=== PATIENT | female | born 1975 | race Two or more races ===

== ENCOUNTER 2016-05-20 21:19 | Emergency (ER) | payer BC, OTHER ==
[~2016-05-20] VITALS: Ht 157.5 cm; Wt 65.8 kg
[2016-05-20 21:41] VITALS: BP 153/74
[2016-05-20 22:21] LABS: Basophils # (auto) 0.1 uL; Basophils % (auto) 1.2 % (0.0-2.0); DEFINITIVE VIEW TRANSMISSION; Eosinophils # (auto) 0.1 uL; Eosinophils % (auto) 1.4 % (0.0-7.0); Hematocrit 34.9 % (36.0-46.0); Hemoglobin 10.6 g/dL (12.2-16.2); Lymphocytes # (auto) 2.3 uL; Lymphocytes % (auto) 23.8 % (10.0-50.0); Mean Corpuscular Hemoglobin 22.5 pg (28.0-32.0); Mean Corpuscular Hgb Conc. 30.3 g/dL (32.0-36.0); Mean Corpuscular Volume 74.4 fL (80.0-100.0); Monocytes # (auto) 0.7 uL; Monocytes % (auto) 7.4 % (0.0-12.0); Neutrophils # (auto) 6.4 uL; Neutrophils % (auto) 66.2 % (37.0-80.0); Platelet Count (auto) 383 10^3/uL (140-450); Red Cell Distribution Width 16.6 % (11.6-16.0); White Blood Cell 9.7 10^3/uL (4.4-10.8)
[2016-05-20 22:38] LABS: Albumin 3.7 g/dL (3.4-5.0); BUN/Creatinine Ratio 15.1; Calcium 8.3 mg/dL (8.5-10.1); Potassium 4.1 mmol/L (3.5-5.1)
[2016-05-20 22:41] LABS: Bilirubin, Total 0.2 mg/dL (0.2-1.0); Total Protein 8.1 g/dL (6.4-8.2)
[2016-05-21 00:50] LABS: Urine Bilirubin Negative (Negative); Urine Color Yellow (Yellow); Urine Glucose Normal (Normal); Urine Ketone Negative (Negative); Urine Mucus FEW (None Seen); Urine Nitrite Negative (Negative); Urine RBC 3 /hpf (0 - 4); Urine Squamous Epithelial Cell FEW /hpf (<5); Urine Urobilinogen Normal (Negative)
[2016-05-21 01:00] LABS: Urine Blood 1+ /uL (Negative)
== END 2016-05-20 23:46 | disposition left against medical advice (07) ==
LOC: ER 21:29
DX: R10.9 Unspecified abdominal pain (principal); Z53.21 Procedure and treatment not carried out due to patient leaving prior to being seen by health care provider
CPT/HCPCS: 36415; 80053; 81001; 83690; 85025

== ENCOUNTER 2016-05-21 16:35 | Inpatient (IN) | payer BC ==
[~2016-05-21] VITALS: Ht 157.5 cm; Wt 74.7 kg
[2016-05-21] MEDS ORDERED: SODIUM CHLORIDE 0.9% 1,000 ML IVB ONE (19:59)
[2016-05-21] MEDS ORDERED: KETOROLAC TROMETH 30 MG/ML 1ML VIAL IV ONE (20:00)
[2016-05-21] MEDS ORDERED: ACETAMINOPHEN 500 MG TAB PO ONE (20:15)
[2016-05-21 20:48] LABS: Urine Bilirubin Negative (Negative); Urine Blood Negative /uL (Negative); Urine Color Yellow (Yellow); Urine Glucose Normal (Normal); Urine Ketone TRACE (Negative); Urine Mucus FEW (None Seen); Urine Nitrite Negative (Negative); Urine RBC 5 /hpf (0 - 4); Urine Squamous Epithelial Cell FEW /hpf (<5); Urine pH 6.5 (5.0-8.0)
[2016-05-21 20:51] LABS: Basophils # (auto) 0.1 uL; Basophils % (auto) 0.6 % (0.0-2.0); DEFINITIVE VIEW TRANSMISSION; Eosinophils # (auto) 0.2 uL; Eosinophils % (auto) 1.6 % (0.0-7.0); Hematocrit 33.1 % (36.0-46.0); Lymphocytes # (auto) 2.5 uL; Lymphocytes % (auto) 24.5 % (10.0-50.0); Mean Corpuscular Hemoglobin 22.7 pg (28.0-32.0); Mean Corpuscular Hgb Conc. 30.3 g/dL (32.0-36.0); Mean Corpuscular Volume 75.1 fL (80.0-100.0); Mean Platelet Volume 9.2 fL (7.4-10.4); Monocytes # (auto) 0.6 uL; Monocytes % (auto) 6.3 % (0.0-12.0); Neutrophils # (auto) 6.8 uL; Platelet Count (auto) 350 10^3/uL (140-450); Red Cell Distribution Width 16.7 % (11.6-16.0); White Blood Cell 10.1 10^3/uL (4.4-10.8)
[2016-05-21 21:00] LABS: INR 0.99 (0.9-1.15); Partial Thromboplastin Time 25.3 sec (22.64-33.71); Prothrombin Time 10.2 sec (9.37-12.3)
[2016-05-21 21:13] LABS: BUN/Creatinine Ratio 27.5; Potassium 3.8 mmol/L (3.5-5.1)
[2016-05-21 21:14] LABS: Albumin 3.6 g/dL (3.4-5.0); Calcium 8.3 mg/dL (8.5-10.1); Magnesium 2.7 mg/dL (1.6-2.6)
[2016-05-21 21:17] LABS: Bilirubin, Total 0.2 mg/dL (0.2-1.0); Total Protein 7.5 g/dL (6.4-8.2)
[2016-05-22] MEDS ORDERED: ACETAMINOPHEN 325 MG TAB PO ONE (00:30)
[2016-05-22] MEDS ORDERED: PROMETHAZINE HCL 25 MG/ML 1ML IV ONE (07:00)
[2016-05-22] MEDS ORDERED: NALBUPHINE HCL 10 MG/1ml INJECTION IV ONE (07:00)
[2016-05-22] MEDS ORDERED: HYDROmorphone HCL 2 MG/ML VL IM PRN (10:15)
[2016-05-22 11:24] LABS: INR 1.02 (0.9-1.15); Partial Thromboplastin Time 25.3 sec (22.64-33.71); Prothrombin Time 10.5 sec (9.37-12.3)
[2016-05-22] MEDS: LACTATED RINGER'S 1,000 ML IV SCH ×2 (11:30→19:33)
[2016-05-22 12:47] VITALS: BP 131/74
[2016-05-22] MEDS ORDERED: ONDANSETRON HCL 4 MG/2 ML VIAL IV PRN (13:00)
[2016-05-22] MEDS: HYDROmorphone HCL 2 MG/ML VL IV PRN (16:11)
[2016-05-22 16:52] VITALS: BP 133/64
[2016-05-22 22:00] VITALS: BP 123/73
[2016-05-23] MEDS: LACTATED RINGER'S 1,000 ML IV SCH ×5 (01:56→23:33)
[2016-05-23 05:00] VITALS: BP 123/74
[2016-05-23 05:13] VITALS: BP 118/70
[2016-05-23 06:19] LABS: Basophils # (auto) 0 uL; Basophils % (auto) 0.6 % (0.0-2.0); DEFINITIVE VIEW TRANSMISSION; Eosinophils # (auto) 0.1 uL; Eosinophils % (auto) 1.5 % (0.0-7.0); Hematocrit 29.6 % (36.0-46.0); Hemoglobin 9.1 g/dL (12.2-16.2); Lymphocytes # (auto) 1.8 uL; Lymphocytes % (auto) 22.7 % (10.0-50.0); Mean Corpuscular Hemoglobin 22.9 pg (28.0-32.0); Mean Corpuscular Hgb Conc. 30.7 g/dL (32.0-36.0); Mean Corpuscular Volume 74.5 fL (80.0-100.0); Mean Platelet Volume 9.6 fL (7.4-10.4); Monocytes # (auto) 0.5 uL; Monocytes % (auto) 6.1 % (0.0-12.0); Neutrophils # (auto) 5.5 uL; Neutrophils % (auto) 69.1 % (37.0-80.0); Platelet Count (auto) 280 10^3/uL (140-450); Red Cell Distribution Width 16.6 % (11.6-16.0)
[2016-05-23 06:37] LABS: BUN/Creatinine Ratio 15.4; Calcium 8.1 mg/dL (8.5-10.1); Potassium 4.4 mmol/L (3.5-5.1)
[2016-05-23 06:39] LABS: Bilirubin, Total 0.2 mg/dL (0.2-1.0); Total Protein 6.4 g/dL (6.4-8.2)
[2016-05-23 09:26] VITALS: BP 109/63
[2016-05-23] MEDS ORDERED: METHYLENE BLUE 1% 1 ML VIAL IV ONE (10:09)
[2016-05-23] MEDS ORDERED: HEPARIN 1,000 UNITS/ml 1ML VIAL ONE (10:09)
[2016-05-23] MEDS ORDERED: GELATIN 1 SPONGE SIZE 50 TOP ONE (10:10)
[2016-05-23 11:55] VITALS: BP 139/88
[2016-05-23] MEDS ORDERED: ceFAZolin 1GM/50ML D5W 50 ML IV ONE (12:09)
[2016-05-23] MEDS ORDERED: fentaNYL CITRATE 100 MCG/2 ML VL ONE ×2 (12:17→13:32)
[2016-05-23] MEDS ORDERED: MIDAZOLAM HCL 1MG/1ML-2 ML VIAL ONE (12:17)
[2016-05-23] MEDS ORDERED: ROCURONIUM 10MG/ML 10ML VIAL IV ONE (12:18)
[2016-05-23] MEDS ORDERED: DEXAMETHASONE SOD PHOS 10MG/1ML VIAL INJ ONE (12:19)
[2016-05-23] MEDS ORDERED: ONDANSETRON HCL 4 MG/2 ML VIAL ONE (12:19)
[2016-05-23] MEDS ORDERED: KETOROLAC TROMETH 60MG/2ML VIAL IM ONE (12:19)
[2016-05-23] MEDS ORDERED: PROPOFOL 10 MG/ML 20 ML IV ONE (12:26)
[2016-05-23] MEDS ORDERED: NEOSTIGMINE 1 MG/ML INJ (10mg/10ML VIAL) IV ONE (12:26)
[2016-05-23] MEDS ORDERED: GLYCOPYRROLATE 0.2 MG/ML 1ML VIAL IV ONE (12:26)
[2016-05-23] MEDS ORDERED: ONDANSETRON HCL 4 MG/2 ML VIAL IV ONE (14:30)
[2016-05-23] MEDS ORDERED: HYDROmorphone HCL 2 MG/ML VL IV PRN (14:30)
[2016-05-23] MEDS ORDERED: LABETALOL HCL 5 MG/ML 4ML SYRINGE IV PRN (14:30)
[2016-05-23] MEDS ORDERED: ONDANSETRON HCL 4 MG/2 ML VIAL IV PRN (14:30)
[2016-05-23] MEDS: HYDROmorphone HCL 2 MG/ML VL IV PRN ×5 (14:31→22:17)
[2016-05-23 16:47] VITALS: BP_SYST 112; BP_SYST 120; BP_DIAS 63; BP_DIAS 69
[2016-05-23] MEDS: KETOROLAC TROMETH 30 MG/ML 1ML VIAL IV SCH ×2 (17:47→23:34)
[2016-05-23] MEDS: ceFAZolin 1GM/50ML D5W 50 ML IV SCH (21:45)
[2016-05-23 22:00] VITALS: BP 118/68
[2016-05-24] MEDS: LACTATED RINGER'S 1,000 ML IV SCH ×2 (02:15→03:41)
[2016-05-24 05:00] VITALS: BP 123/63
[2016-05-24] MEDS: KETOROLAC TROMETH 30 MG/ML 1ML VIAL IV SCH (05:51)
[2016-05-24] MEDS: ceFAZolin 1GM/50ML D5W 50 ML IV SCH (05:51)
[2016-05-24 06:04] LABS: Basophils # (auto) 0 uL; Basophils % (auto) 0.1 % (0.0-2.0); DEFINITIVE VIEW TRANSMISSION; Eosinophils # (auto) 0 uL; Hematocrit 29.4 % (36.0-46.0); Hemoglobin 8.9 g/dL (12.2-16.2); Lymphocytes # (auto) 0.8 uL; Lymphocytes % (auto) 5.8 % (10.0-50.0); Mean Corpuscular Hemoglobin 22.7 pg (28.0-32.0); Mean Corpuscular Hgb Conc. 30.3 g/dL (32.0-36.0); Mean Corpuscular Volume 74.9 fL (80.0-100.0); Mean Platelet Volume 9.7 fL (7.4-10.4); Monocytes # (auto) 0.7 uL; Monocytes % (auto) 5.3 % (0.0-12.0); Neutrophils # (auto) 11.8 uL; Neutrophils % (auto) 88.8 % (37.0-80.0); Platelet Count (auto) 315 10^3/uL (140-450); Red Cell Distribution Width 16.1 % (11.6-16.0); White Blood Cell 13.3 10^3/uL (4.4-10.8)
[2016-05-24] MEDS: HYDROmorphone HCL 2 MG/ML VL IV PRN (08:49)
[2016-05-24 09:00] VITALS: BP 123/62
[2016-05-24 11:08] VITALS: BP 123/62
== END 2016-05-24 11:50 | disposition home or self-care (01) | DRG 742 ==
LOC: ER 16:40 → OVERFLOW 16:41 → WEST WING 05-22 12:58
PROVIDERS: ADMIT Specialist; ATTEND Specialist
PROC: 0JNC3ZZ Release Pelvic Region Subcutaneous Tissue and Fascia, Percutaneous Approach (ICD-10-PCS; 2016-05-23)
PROC: 0UB14ZZ Excision of Left Ovary, Percutaneous Endoscopic Approach (ICD-10-PCS; principal; 2016-05-23 12:26)
DX: N80.1 Endometriosis of ovary (principal); N83.512 Torsion of left ovary and ovarian pedicle; N73.6 Female pelvic peritoneal adhesions (postinfective); D50.9 Iron deficiency anemia, unspecified; N83.201 Unspecified ovarian cyst, right side; Z82.49 Family history of ischemic heart disease and other diseases of the circulatory system; Z83.3 Family history of diabetes mellitus; Z98.890 Other specified postprocedural states
CPT/HCPCS: 36415; 71020; 76856; 80053; 81001; 81025; 83735; 84702; 85025; 85610; 85730; 86304; 86850; 86900; 86901; 93005; 94761; 96361; 96374; 96375; J0690; J1100; J1885; J2250; J2405; J2704

== ENCOUNTER → 2016-06-21 | Outpatient (CLI) | payer BC | END | disposition home or self-care (01) | LOC: LAB 10:24 | PROVIDERS: ATTEND Specialist | DX: N92.4 Excessive bleeding in the premenopausal period (principal) | CPT/HCPCS: 36415; 83001; 83002; 84439; 84443; 84481 ==

== ENCOUNTER → 2016-07-04 | Outpatient (CLI) | payer BC | END | disposition home or self-care (01) | LOC: LAB 08:56 | PROVIDERS: ATTEND Specialist | DX: Z20.2 Contact with and (suspected) exposure to infections with a predominantly sexual mode of transmission (principal) | CPT/HCPCS: 36415; 80074; 86703 ==

== ENCOUNTER 2016-10-10 13:14 | Emergency (ER) | payer BC ==
[~2016-10-10] VITALS: Ht 157.5 cm; Wt 68.5 kg
[2016-10-10 13:53] LABS: Basophils # (auto) 0.1 uL; Basophils % (auto) 0.8 % (0.0-2.0); CONDITION Y; DEFINITIVE SEE PRINTOUT; Eosinophils # (auto) 0.1 uL; Eosinophils % (auto) 1.6 % (0.0-7.0); Hematocrit 34.5 % (36.0-46.0); Lymphocytes # (auto) 1.6 uL; Lymphocytes % (auto) 21.5 % (10.0-50.0); Mean Corpuscular Volume 71.7 fL (80.0-100.0); Mean Platelet Volume 9.8 fL (7.4-10.4); Monocytes # (auto) 0.5 uL; Monocytes % (auto) 6.1 % (0.0-12.0); Neutrophils # (auto) 5.4 uL; Platelet Count (auto) 402 10^3/uL (140-450); Red Cell Distribution Width 17.8 % (11.6-16.0); SUSPECT SEE PRINTOUT; White Blood Cell 7.7 10^3/uL (4.4-10.8)
[2016-10-10 14:07] LABS: Albumin 3.7 g/dL (3.4-5.0); BUN/Creatinine Ratio 26.2; Bilirubin, Total 0.3 mg/dL (0.2-1.0); Calcium 8.7 mg/dL (8.5-10.1); Total Protein 7.9 g/dL (6.4-8.2)
[2016-10-10 16:34] LABS: Urine RBC None Seen /hpf (0 - 4)
[2016-10-10] MEDS ORDERED: SODIUM CHLORIDE 0.9% 1,000 ML IVB ONE (16:41)
[2016-10-10] MEDS ORDERED: MORPHINE SULFATE 4 MG/ML SYRG IV ONE (16:45)
[2016-10-10] MEDS ORDERED: ONDANSETRON HCL 4 MG/2 ML VIAL IV ONE (16:45)
[2016-10-10 17:29] LABS: Urine Bilirubin Negative (Negative); Urine Blood Negative /uL (Negative); Urine Color Yellow (Yellow); Urine Glucose Normal (Normal); Urine Ketone Negative (Negative); Urine Nitrite Negative (Negative); Urine Squamous Epithelial Cell FEW /hpf (<5); Urine Urobilinogen Normal (Negative); Urine pH 6.5 (5.0-8.0)
[2016-10-10 19:18] VITALS: BP 133/80
== END 2016-10-10 19:43 | disposition home or self-care (01) ==
LOC: ER 13:14
DX: N80.9 Endometriosis, unspecified (principal); K59.00 Constipation, unspecified
CPT/HCPCS: 36415; 74176; 80053; 81001; 84702; 85025; 94761; 96361; 96374; 96375; 99285; J2270; J2405; J7030

== ENCOUNTER → 2016-12-30 | Outpatient (CLI) | payer BC ==
[2016-12-30 07:51] LABS: Basophils # (auto) 0.1 uL; Basophils % (auto) 1.2 % (0.0-2.0); Eosinophils # (auto) 0.1 uL; Hematocrit 33.5 % (36.0-46.0); Hemoglobin 10.4 g/dL (12.2-16.2); Lymphocytes # (auto) 1.6 uL; Lymphocytes % (auto) 21.8 % (10.0-50.0); Mean Corpuscular Hgb Conc. 31.1 g/dL (32.0-36.0); Mean Corpuscular Volume 73.8 fL (80.0-100.0); Mean Platelet Volume 7.9 fL (6.9-10.8); Monocytes # (auto) 0.5 uL; Monocytes % (auto) 6.4 % (0.0-12.0); Neutrophils # (auto) 4.9 uL; Neutrophils % (auto) 68.6 % (37.0-80.0); Platelet Count (auto) 351 10^3/uL (140-450); Red Cell Distribution Width 17.1 % (11.8-14.3); White Blood Cell 7.1 10^3/uL (4.4-10.8)
[2016-12-30 08:05] LABS: Urine Bilirubin Negative (Negative); Urine Blood TRACE /uL (Negative); Urine Color Yellow (Yellow); Urine Glucose Normal (Normal); Urine Ketone Negative (Negative); Urine Mucus FEW (None Seen); Urine Nitrite Negative (Negative); Urine RBC <1 /hpf (0 - 4); Urine Squamous Epithelial Cell FEW /hpf (<5); Urine Urobilinogen Normal (Negative)
[2016-12-30 08:10] LABS: Albumin 3.7 g/dL (3.4-5.0); BUN/Creatinine Ratio 28.6; Bilirubin, Total 0.2 mg/dL (0.2-1.0); Calcium 8.5 mg/dL (8.5-10.1); Potassium 4.4 mmol/L (3.5-5.1)
== END | disposition home or self-care (01) ==
LOC: LAB 07:26
PROVIDERS: ATTEND Internal Medicine
DX: K59.00 Constipation, unspecified (principal); Z78.0 Asymptomatic menopausal state
CPT/HCPCS: 36415; 80053; 80061; 81001; 83001; 84439; 84443; 85025; 85652

== ENCOUNTER → 2017-01-09 | Outpatient (CLI) | payer BC | END | disposition home or self-care (01) | LOC: LAB 11:32 | PROVIDERS: ATTEND Internal Medicine | DX: K59.00 Constipation, unspecified (principal); Z78.0 Asymptomatic menopausal state | CPT/HCPCS: 82270 ==

== ENCOUNTER → 2017-01-25 | Outpatient (CLI) | payer BC | END | disposition home or self-care (01) | LOC: LAB 10:00 | PROVIDERS: ATTEND Specialist | DX: N92.0 Excessive and frequent menstruation with regular cycle (principal) ==

== ENCOUNTER 2017-02-12 21:24 | Emergency (ER) | payer BC ==
[~2017-02-12] VITALS: Ht 157.5 cm; Wt 65.8 kg
[~2017-02-12 21:24] MED LIST: IBUP800T24 PO
[2017-02-12 22:31] LABS: Basophils # (auto) 0.1 uL; Basophils % (auto) 0.4 % (0.0-2.0); Eosinophils # (auto) 0.1 uL; Hemoglobin 10.9 g/dL (12.2-16.2); Lymphocytes # (auto) 1.4 uL; Neutrophils # (auto) 13.2 uL
[2017-02-12 22:32] LABS: Urine Bacteria NONE SEEN /hpf (None Seen); Urine Blood 3+ /uL (Negative); Urine Mucus FEW (None Seen); Urine Specific Gravity 1.016 (1.001-1.035); Urine WBC 6 /hpf (0 - 5)
[2017-02-12 22:34] LABS: Eosinophils % (auto) 0.4 % (0.0-7.0); Hematocrit 34.9 % (36.0-46.0); Lymphocytes % (auto) 9.1 % (10.0-50.0); Mean Corpuscular Hgb Conc. 31.4 g/dL (32.0-36.0); Mean Corpuscular Volume 76.6 fL (80.0-100.0); Monocytes # (auto) 0.6 uL; Monocytes % (auto) 4.2 % (0.0-12.0); Neutrophils % (auto) 85.9 % (37.0-80.0); Platelet Count (auto) 323 10^3/uL (140-450); Red Blood Cells 4.56 10^6/uL (4.0-5.20); White Blood Cell 15.3 10^3/uL (4.4-10.8)
[2017-02-12 22:42] LABS: Albumin 3.7 g/dL (3.4-5.0); Bilirubin, Total 0.4 mg/dL (0.2-1.0); Calcium 8.5 mg/dL (8.5-10.1); Potassium 3.4 mmol/L (3.5-5.1); Total Protein 7.9 g/dL (6.4-8.2)
[2017-02-12 22:46] LABS: Red Cell Distribution Width 21.4 % (11.8-14.3)
[2017-02-12] MEDS ORDERED: ONDANSETRON ODT 4 MG TAB PO ONE (23:45)
[2017-02-13 02:00] VITALS: BP 115/68
[2017-02-13] MEDS ORDERED: LIDOCAINE VISCOUS 2% 15ML UD ONE (08:16)
[2017-02-13] MEDS ORDERED: SODIUM CHLORIDE LOCK 10 ML ONE (08:16)
[2017-02-13] MEDS ORDERED: fentaNYL CITRATE 100 MCG/2 ML VL ONE (08:17)
[2017-02-13] MEDS ORDERED: MIDAZOLAM HCL 5 MG/ML-1ML VIAL ONE (08:17)
[2017-02-13] MEDS ORDERED: diphenhdrAMINE HCL 50 MG/1 ML VL ONE (08:17)
== END 2017-02-13 02:31 | disposition left against medical advice (07) ==
LOC: ER 21:24 → EDBD 21:24 → ER 02-13 02:31
DX: R10.9 Unspecified abdominal pain (principal); F55.2 Abuse of laxatives; Z53.29 Procedure and treatment not carried out because of patient's decision for other reasons
CPT/HCPCS: 36415; 80053; 81001; 85025; 99284; J1200; J2250; J3010; Q0162

== ENCOUNTER 2017-02-13 09:10 | Day surgery (SDC) | payer BC ==
[2017-02-10 15:40] LABS: INR 0.93 (0.9-1.15); Partial Thromboplastin Time 25.3 sec (22.64-33.71); Prothrombin Time 10.1 sec (9.37-12.3)
[~2017-02-13] VITALS: Ht 157.5 cm; Wt 70.3 kg
[2017-02-13 12:00] VITALS: BP 131/74
== END 2017-02-13 12:07 | disposition home or self-care (01) ==
LOC: GI 09:10
PROVIDERS: ATTEND Internal Medicine Gastroenterology
DX: K64.8 Other hemorrhoids (principal); K63.89 Other specified diseases of intestine; K21.9 Gastro-esophageal reflux disease without esophagitis; K31.7 Polyp of stomach and duodenum; K44.9 Diaphragmatic hernia without obstruction or gangrene; N80.9 Endometriosis, unspecified; F10.99 Alcohol use, unspecified with unspecified alcohol-induced disorder; D69.6 Thrombocytopenia, unspecified
CPT/HCPCS: 36415; 43239; 45378; 84702; 85610; 85730; 99152

== ENCOUNTER 2017-03-31 05:59 | Inpatient (IN) | payer BC ==
[2017-03-28 14:09] LABS: Urine Bilirubin Negative (Negative); Urine Blood Negative /uL (Negative); Urine Color Yellow (Yellow); Urine Glucose Normal (Normal); Urine Ketone Negative (Negative); Urine Nitrite Negative (Negative); Urine Urobilinogen Normal (Negative)
[2017-03-28 14:12] LABS: Basophils # (auto) 0.1 uL; Basophils % (auto) 0.9 % (0.0-2.0); Eosinophils # (auto) 0.1 uL; Hemoglobin 11.4 g/dL (12.2-16.2); Lymphocytes # (auto) 1.8 uL; Monocytes # (auto) 0.4 uL; Monocytes % (auto) 5.8 % (0.0-12.0)
[2017-03-28 14:15] LABS: Eosinophils % (auto) 1.5 % (0.0-7.0); Hematocrit 36.8 % (36.0-46.0); Lymphocytes % (auto) 24.6 % (10.0-50.0); Mean Corpuscular Hemoglobin 24.3 pg (28.0-32.0); Mean Corpuscular Hgb Conc. 31.1 g/dL (32.0-36.0); Mean Corpuscular Volume 78.1 fL (80.0-100.0); Mean Platelet Volume 8.8 fL (6.9-10.8); Neutrophils % (auto) 67.2 % (37.0-80.0); Platelet Count (auto) 298 10^3/uL (140-450); White Blood Cell 7.4 10^3/uL (4.4-10.8)
[2017-03-28 14:32] LABS: INR 0.93 (0.9-1.15); Partial Thromboplastin Time 25.2 sec (22.64-33.71); Prothrombin Time 10.1 sec (9.37-12.3)
[2017-03-28 14:40] LABS: Albumin 3.7 g/dL (3.4-5.0); BUN/Creatinine Ratio 28.6; Bilirubin, Total 0.2 mg/dL (0.2-1.0); Calcium 8.5 mg/dL (8.5-10.1); Potassium 4.1 mmol/L (3.5-5.1)
[2017-03-28 17:34] LABS: Platelet Estimate Adequate
[2017-03-28 17:35] LABS: Hypochromia Moderate; Microcytosis Slight; Ovalocytes FEW
[~2017-03-31] VITALS: Ht 157.5 cm; Wt 72.8 kg
[2017-03-31] MEDS ORDERED: ceFAZolin 1GM/50ML 50 ML IV ONE ×2 (06:35→06:41)
[2017-03-31] MEDS ORDERED: SODIUM CHLORIDE LOCK 10 ML ONE (07:09)
[2017-03-31] MEDS ORDERED: ROCURONIUM 10MG/ML 10ML VIAL IV ONE (07:09)
[2017-03-31] MEDS ORDERED: PROPOFOL 10 MG/ML 20 ML IV ONE (07:09)
[2017-03-31] MEDS ORDERED: MIDAZOLAM HCL 1MG/1ML-2 ML VIAL ONE (07:09)
[2017-03-31] MEDS ORDERED: fentaNYL CITRATE 100 MCG/2 ML VL ONE ×2 (07:09→08:57)
[2017-03-31] MEDS ORDERED: ONDANSETRON HCL 4 MG/2 ML VIAL ONE (07:09)
[2017-03-31] MEDS ORDERED: MEPERIDINE HCL (50 MG/ML) 1 ML VIAL ONE (07:10)
[2017-03-31] MEDS ORDERED: METOCLOPRAMIDE HCL 5MG/ml INJ 2ml VIAL IV ONE (08:00)
[2017-03-31] MEDS ORDERED: KETOROLAC TROMETH 30 MG/ML 1ML VIAL IV ONE (08:00)
[2017-03-31] MEDS ORDERED: NEOSTIGMINE 1 MG/ML INJ (10mg/10ML VIAL) ONE (08:38)
[2017-03-31] MEDS ORDERED: GLYCOPYRROLATE 0.2 MG/ML 1ML VIAL ONE (08:38)
[2017-03-31] MEDS ORDERED: KETOROLAC TROMETH 60MG/2ML VIAL IM ONE (08:38)
[2017-03-31] MEDS: HYDROmorphone HCL 2 MG/ML VL IV PRN ×5 (09:30→21:25)
[2017-03-31] MEDS ORDERED: ACETAMINOPHEN IV 100 ML IV ONE (10:16)
[2017-03-31] MEDS ORDERED: ACETAMINOPHEN IV 1000 MG/100ML (10MG/ML) IV ONE (10:30)
[2017-03-31] MEDS ORDERED: ACETAMINOPHEN 500 MG TAB PO PRN (10:30)
[2017-03-31 11:15] VITALS: BP 133/77
[2017-03-31] MEDS: LACTATED RINGER'S 1,000 ML IV SCH ×2 (11:47→18:51)
[2017-03-31] MEDS: KETOROLAC TROMETH 30 MG/ML 1ML VIAL IV SCH ×2 (11:47→18:51)
[2017-03-31] MEDS: ONDANSETRON HCL 4 MG/2 ML VIAL IV PRN (12:05)
[2017-03-31 13:00] VITALS: BP 133/77
[2017-03-31] MEDS: ceFAZolin 1GM/50ML 50 ML IV SCH ×2 (14:32→21:50)
[2017-03-31 16:35] VITALS: BP 128/79
[2017-03-31 22:00] VITALS: BP 119/75
[2017-04-01] MEDS: KETOROLAC TROMETH 30 MG/ML 1ML VIAL IV SCH ×3 (00:16→12:28)
[2017-04-01] MEDS: LACTATED RINGER'S 1,000 ML IV SCH ×3 (02:21→12:55)
[2017-04-01] MEDS: HYDROmorphone HCL 2 MG/ML VL IV PRN ×2 (03:34→08:42)
[2017-04-01 05:00] VITALS: BP 109/59
[2017-04-01 05:20] LABS: Basophils # (auto) 0 uL; Basophils % (auto) 0.1 % (0.0-2.0); Eosinophils # (auto) 0 uL; Eosinophils % (auto) 0.1 % (0.0-7.0); Mean Platelet Volume 8.4 fL (6.9-10.8)
[2017-04-01 05:24] LABS: Hematocrit 27.9 % (36.0-46.0); Hemoglobin 9.1 g/dL (12.2-16.2); Lymphocytes % (auto) 9.2 % (10.0-50.0); Mean Corpuscular Hemoglobin 24.9 pg (28.0-32.0); Mean Corpuscular Hgb Conc. 32.7 g/dL (32.0-36.0); Mean Corpuscular Volume 76.2 fL (80.0-100.0); Monocytes # (auto) 0.8 uL; Monocytes % (auto) 7.5 % (0.0-12.0); Neutrophils # (auto) 8.5 uL; Neutrophils % (auto) 83.1 % (37.0-80.0); Platelet Count (auto) 228 10^3/uL (140-450); Red Cell Distribution Width 18.4 % (11.8-14.3); White Blood Cell 10.3 10^3/uL (4.4-10.8)
[2017-04-01] MEDS: ceFAZolin 1GM/50ML 50 ML IV SCH (05:32)
[2017-04-01 05:40] LABS: Albumin 2.7 g/dL (3.4-5.0); BUN/Creatinine Ratio 27.3; Calcium 7.8 mg/dL (8.5-10.1); Potassium 3.9 mmol/L (3.5-5.1)
[2017-04-01 05:43] LABS: Bilirubin, Total 0.4 mg/dL (0.2-1.0); Total Protein 6.7 g/dL (6.4-8.2)
[2017-04-01 09:26] VITALS: BP 113/64
[2017-04-01] MEDS ORDERED: IOHEXOL 300 MG/ML 100ML BOTTLE IJ ONE (09:46)
[2017-04-01] MEDS ORDERED: HYDROcodone-ACET 5/325MG TAB PO PRN (10:45)
[2017-04-01] MEDS: ONDANSETRON HCL 4 MG/2 ML VIAL IV PRN ×2 (12:14→15:35)
[2017-04-01] MEDS: SIMETHICONE 80 MG CHEWABLE TABLET PO SCH ×3 (12:28→21:25)
[2017-04-01 14:12] VITALS: BP 126/77
[2017-04-01] MEDS ORDERED: PANTOPRAZOLE 40 MG TAB PO ONE ×3 (14:30→15:24)
[2017-04-01] MEDS ORDERED: IBUPROFEN 800 MG TAB PO PRN (14:30)
[2017-04-01] MEDS: HYDROcodone-ACET 5/325MG TAB PO PRN ×2 (16:32→21:26)
[2017-04-01 17:39] VITALS: BP 136/71
[2017-04-01 22:00] VITALS: BP 107/70
[2017-04-02] MEDS: LACTATED RINGER'S 1,000 ML IV SCH ×2 (02:23→10:21)
[2017-04-02] MEDS: HYDROcodone-ACET 5/325MG TAB PO PRN ×5 (02:35→22:24)
[2017-04-02 05:13] VITALS: BP 125/68
[2017-04-02] MEDS: SIMETHICONE 80 MG CHEWABLE TABLET PO SCH ×4 (06:12→22:23)
[2017-04-02 09:03] VITALS: BP 129/77
[2017-04-02] MEDS: PANTOPRAZOLE 40 MG TAB PO SCH (10:31)
[2017-04-02] MEDS ORDERED: BISACODYL 10 MG RECT SUPP PR ONE (13:30)
[2017-04-02 15:50] VITALS: BP 121/66
[2017-04-02 17:56] VITALS: BP 133/74
[2017-04-02 22:00] VITALS: BP 137/74
[2017-04-03 05:00] VITALS: BP 133/80
[2017-04-03] MEDS: HYDROcodone-ACET 5/325MG TAB PO PRN ×2 (05:08→10:29)
[2017-04-03] MEDS: SIMETHICONE 80 MG CHEWABLE TABLET PO SCH (05:30)
[2017-04-03 07:57] VITALS: BP 127/71
[2017-04-03] MEDS: PANTOPRAZOLE 40 MG TAB PO SCH (08:57)
[2017-04-03 09:52] VITALS: BP 127/71
== END 2017-04-03 10:45 | disposition home or self-care (01) | DRG 743 ==
LOC: SUR 05:59 → TELE-WESTW 06:00 → WEST WING 12:11
PROVIDERS: ADMIT Specialist; ATTEND Specialist
PROC: 0UT20ZZ Resection of Bilateral Ovaries, Open Approach (ICD-10-PCS; 2017-03-31)
PROC: 0UT70ZZ Resection of Bilateral Fallopian Tubes, Open Approach (ICD-10-PCS; 2017-03-31)
PROC: 0DNW0ZZ Release Peritoneum, Open Approach (ICD-10-PCS; 2017-03-31)
PROC: 0DNU0ZZ Release Omentum, Open Approach (ICD-10-PCS; 2017-03-31)
PROC: 0UT90ZZ Resection of Uterus, Open Approach (ICD-10-PCS; principal; 2017-03-31 07:27)
DX: N80.1 Endometriosis of ovary (principal); G89.29 Other chronic pain; N94.6 Dysmenorrhea, unspecified; N92.0 Excessive and frequent menstruation with regular cycle; N73.6 Female pelvic peritoneal adhesions (postinfective)
CPT/HCPCS: 36415; 74177; 80053; 81003; 84702; 85025; 85610; 85730; 86850; 86900; 86901; J0131; J0690; J1885; J2250; J2405; J2704

== ENCOUNTER → 2017-04-24 | Outpatient (CLI) | payer BC | END | disposition home or self-care (01) | LOC: LAB 15:07 | PROVIDERS: ATTEND Specialist | DX: N39.0 Urinary tract infection, site not specified (principal) | CPT/HCPCS: 87086 ==

== ENCOUNTER → 2017-05-02 | Outpatient (CLI) | payer BC | END | disposition home or self-care (01) | LOC: LAB 15:22 | PROVIDERS: ATTEND Specialist | DX: N39.0 Urinary tract infection, site not specified (principal) | CPT/HCPCS: 87086 ==

== ENCOUNTER → 2017-05-23 | Outpatient (CLI) | payer BC ==
[2017-05-23 12:02] LABS: Basophils # (auto) 0.1 uL; Eosinophils # (auto) 0.1 uL; Hemoglobin 10.9 g/dL (12.2-16.2); Lymphocytes # (auto) 1.6 uL; White Blood Cell 6.8 10^3/uL (4.4-10.8)
[2017-05-23 12:05] LABS: Basophils % (auto) 1.2 % (0.0-2.0); Eosinophils % (auto) 1.3 % (0.0-7.0); Lymphocytes % (auto) 23.9 % (10.0-50.0); Mean Corpuscular Hemoglobin 23.6 pg (28.0-32.0); Mean Corpuscular Hgb Conc. 31.2 g/dL (32.0-36.0); Mean Corpuscular Volume 75.7 fL (80.0-100.0); Monocytes # (auto) 0.4 uL; Monocytes % (auto) 6.3 % (0.0-12.0); Neutrophils # (auto) 4.5 uL; Neutrophils % (auto) 67.3 % (37.0-80.0); Nucleated Red Blood Cells % 0.4 %; Platelet Count (auto) 374 10^3/uL (140-450); Red Blood Cells 4.63 10^6/uL (4.0-5.20); Red Cell Distribution Width 16.4 % (11.8-14.3)
== END | disposition home or self-care (01) ==
LOC: LAB 11:35
PROVIDERS: ATTEND Internal Medicine
DX: D64.9 Anemia, unspecified (principal)
CPT/HCPCS: 36415; 82607; 83036; 83540; 85025

== ENCOUNTER → 2017-09-15 | Outpatient (CLI) | payer BC ==
[2017-09-15 11:10] LABS: Basophils # (auto) 0.1 uL; Eosinophils # (auto) 0.1 uL; Hemoglobin 11.3 g/dL (12.2-16.2); Monocytes # (auto) 0.3 uL
[2017-09-15 11:12] LABS: Basophils % (auto) 1.2 % (0.0-2.0); Eosinophils % (auto) 1.4 % (0.0-7.0); Hematocrit 36.8 % (36.0-46.0); Lymphocytes # (auto) 1.5 uL; Lymphocytes % (auto) 24.4 % (10.0-50.0); Mean Corpuscular Hemoglobin 22.5 pg (28.0-32.0); Mean Corpuscular Hgb Conc. 30.8 g/dL (32.0-36.0); Mean Corpuscular Volume 73.2 fL (80.0-100.0); Monocytes % (auto) 5.4 % (0.0-12.0); Neutrophils % (auto) 67.6 % (37.0-80.0); Platelet Count (auto) 332 10^3/uL (140-450); Red Blood Cells 5.03 10^6/uL (4.0-5.20); Red Cell Distribution Width 18.2 % (11.8-14.3)
[2017-09-15 11:38] LABS: BUN/Creatinine Ratio 25.7; Bilirubin, Total 0.3 mg/dL (0.2-1.0); Calcium 9.2 mg/dL (8.5-10.1); Magnesium 2.5 mg/dL (1.6-2.6); Potassium 4.4 mmol/L (3.5-5.1); Total Protein 8.5 g/dL (6.4-8.2)
== END | disposition home or self-care (01) ==
LOC: LAB 10:39
PROVIDERS: ATTEND Internal Medicine
DX: K21.9 Gastro-esophageal reflux disease without esophagitis (principal); R00.2 Palpitations
CPT/HCPCS: 36415; 80053; 82150; 83690; 83735; 85025; 85379; 86677

== ENCOUNTER → 2017-11-16 | Outpatient (CLI) | payer BC | END | disposition home or self-care (01) | LOC: LAB 15:32 | PROVIDERS: ATTEND Internal Medicine Gastroenterology | DX: D64.9 Anemia, unspecified (principal); K21.9 Gastro-esophageal reflux disease without esophagitis | CPT/HCPCS: 82784; 83516; 86255 ==

== ENCOUNTER 2017-12-28 14:24 | Outpatient (CLI) | payer BC ==
[~2017-12-28] VITALS: Ht 157.5 cm; Wt 74.8 kg
[~2017-12-28 14:24] MED LIST changes: -IBUP800T24 PO; +PANT40TA2 PO
[2017-12-28 14:37] LABS: Basophils # (auto) 0.1 uL; Eosinophils # (auto) 0 uL; Lymphocytes # (auto) 1.2 uL; Lymphocytes % (auto) 14.8 % (10.0-50.0); Mean Corpuscular Hemoglobin 24.1 pg (28.0-32.0); Monocytes # (auto) 0.4 uL; Red Blood Cells 4.96 10^6/uL (4.0-5.20)
[2017-12-28 14:38] LABS: Basophils % (auto) 0.7 % (0.0-2.0); Eosinophils % (auto) 0.6 % (0.0-7.0); Hematocrit 37.6 % (36.0-46.0); Hemoglobin 11.9 g/dL (12.2-16.2); Mean Corpuscular Hgb Conc. 31.7 g/dL (32.0-36.0); Mean Corpuscular Volume 75.9 fL (80.0-100.0); Monocytes % (auto) 5.6 % (0.0-12.0); Neutrophils # (auto) 6.1 uL; Neutrophils % (auto) 78.3 % (37.0-80.0); Platelet Count (auto) 316 10^3/uL (140-450); Red Cell Distribution Width 17.1 % (11.8-14.3); White Blood Cell 7.8 10^3/uL (4.4-10.8)
[2017-12-28 14:52] LABS: INR 0.95 (0.9-1.15); Partial Thromboplastin Time 25.7 sec (23.78-33.04); Prothrombin Time 10.2 sec (9.27-12.13)
== END 2017-12-28 14:34 | disposition home or self-care (01) ==
LOC: LAB 14:24 → EDSTATUS 01-29 11:53
PROVIDERS: ATTEND Internal Medicine Gastroenterology
DX: K21.9 Gastro-esophageal reflux disease without esophagitis (principal); D64.9 Anemia, unspecified; E66.9 Obesity, unspecified; Z68.30 Body mass index [BMI] 30.0-30.9, adult; Z98.890 Other specified postprocedural states; Z90.710 Acquired absence of both cervix and uterus; Z90.721 Acquired absence of ovaries, unilateral; Z82.49 Family history of ischemic heart disease and other diseases of the circulatory system; Z83.3 Family history of diabetes mellitus; Z79.01 Long term (current) use of anticoagulants
CPT/HCPCS: 36415; 85025; 85610; 85730

== ENCOUNTER → 2018-03-29 | Outpatient (CLI) | payer BC ==
[2018-03-29 14:27] LABS: Free T4 (Free Thyroxine) 1.17 ng/dL (0.89-1.76)
[2018-03-29 14:28] LABS: Free T3 3.46 pg/mL (2.3-4.2)
== END | disposition home or self-care (01) ==
LOC: LAB 12:27
PROVIDERS: ATTEND Specialist
DX: N91.5 Oligomenorrhea, unspecified (principal); E03.9 Hypothyroidism, unspecified
CPT/HCPCS: 36415; 84439; 84443; 84481

== ENCOUNTER → 2020-08-20 | Outpatient (CLI) | payer BC, MEDICAID ==
[2020-08-20 16:59] LABS: Basophils # (auto) 0.1 10 ^3/uL (0-0.2); Eosinophils # (auto) 0.1 10 ^3/uL (0-0.8); Eosinophils % (auto) 1.2 % (0.0-7.0); Hematocrit 40.7 % (36.0-46.0); Hemoglobin 13.9 g/dL (12.2-16.2); Lymphocytes # (auto) 1.7 10 ^3/uL (0.4-5.4); Lymphocytes % (auto) 20.7 % (10.0-50.0); Mean Corpuscular Hgb Conc. 34.1 g/dL (32.0-36.0); Mean Corpuscular Volume 87.8 fL (80.0-100.0); Monocytes # (auto) 0.5 10 ^3/uL (0-1.3); Monocytes % (auto) 6.1 % (0.0-12.0); Neutrophils # (auto) 5.8 10 ^3/uL (1.6-8.6); Nucleated Red Blood Cells % 0.1 %; Platelet Count (auto) 287 10^3/uL (140-450); Red Blood Cells 4.63 10^6/uL (4.0-5.20); Red Cell Distribution Width 13.6 % (11.8-14.3); White Blood Cell 8.2 10^3/uL (4.4-10.8)
[2020-08-20 17:37] LABS: Albumin 3.9 g/dL (3.4-5.0); BUN/Creatinine Ratio 28.8; Calcium 9.5 mg/dL (8.5-10.1); Potassium 3.9 mmol/L (3.5-5.1)
[2020-08-20 17:42] LABS: Bilirubin, Total 0.2 mg/dL (0.2-1.0)
== END | disposition home or self-care (01) ==
LOC: LAB 16:37
PROVIDERS: ATTEND Internal Medicine Nephrology
DX: E66.9 Obesity, unspecified (principal)
CPT/HCPCS: 36415; 80053; 83036; 84439; 84443; 85025; 86735; 86762; 86765; 86787

== ENCOUNTER → 2020-11-05 | Outpatient (CLI) | payer BC, MEDICAID ==
[2020-11-05 12:57] LABS: Urine Bacteria FEW /hpf (None Seen); Urine Blood 1+ /uL (Negative); Urine Mucus FEW (None Seen); Urine Specific Gravity 1.019 (1.001-1.035); Urine WBC 1 /hpf (0 - 5)
[2020-11-05 13:52] LABS: Follicle Stimulating Hormone 57.05 IU/L (SEE BELOW); Leuteinizing Hormone 38.6 IU/L
== END | disposition home or self-care (01) ==
LOC: LAB 12:33
PROVIDERS: ATTEND Specialist
DX: Z01.419 Encounter for gynecological examination (general) (routine) without abnormal findings (principal)
CPT/HCPCS: 81001; 83001; 83002; 87086

== ENCOUNTER → 2021-11-15 | Outpatient (CLI) | payer MEDICAID ==
[2021-11-15 09:03] LABS: Basophils # (auto) 0.1 10 ^3/uL (0-0.2); Basophils % (auto) 0.9 % (0.0-2.0); Eosinophils # (auto) 0.1 10 ^3/uL (0-0.8); Eosinophils % (auto) 2.1 % (0.0-7.0); Hematocrit 42.5 % (36.0-46.0); Hemoglobin 13.7 g/dL (12.2-16.2); Lymphocytes # (auto) 1.8 10 ^3/uL (0.4-5.4); Lymphocytes % (auto) 27.3 % (10.0-50.0); Mean Corpuscular Hemoglobin 28.1 pg (28.0-32.0); Mean Corpuscular Hgb Conc. 32.2 g/dL (32.0-36.0); Mean Corpuscular Volume 87.3 fL (80.0-100.0); Monocytes # (auto) 0.4 10 ^3/uL (0-1.3); Monocytes % (auto) 5.4 % (0.0-12.0); Neutrophils # (auto) 4.2 10 ^3/uL (1.6-8.6); Neutrophils % (auto) 64.3 % (37.0-80.0); Nucleated Red Blood Cells % 0.2 %; Red Blood Cells 4.87 10^6/uL (4.0-5.20); Red Cell Distribution Width 13.2 % (11.8-14.3); White Blood Cell 6.6 10^3/uL (4.4-10.8)
[2021-11-15 09:31] LABS: Albumin 3.9 g/dL (3.4-5.0); Calcium 9.4 mg/dL (8.5-10.1); Potassium 4.8 mmol/L (3.5-5.1)
[2021-11-15 11:39] LABS: BUN/Creatinine Ratio 19.2
[2021-11-15 11:40] LABS: Bilirubin, Total 0.4 mg/dL (0.2-1.0); Total Protein 7.8 g/dL (6.4-8.2)
== END | disposition home or self-care (01) ==
LOC: LAB 08:42
PROVIDERS: ATTEND Internal Medicine Nephrology
DX: E78.5 Hyperlipidemia, unspecified (principal)
CPT/HCPCS: 36415; 80053; 80061; 85025

== ENCOUNTER → 2022-06-30 | Outpatient (CLI) | payer MEDICAID ==
[2022-06-30 11:42] LABS: Basophils # (auto) 0.1 10 ^3/uL (0-0.2); Eosinophils # (auto) 0.1 10 ^3/uL (0-0.8); Eosinophils % (auto) 1.6 % (0.0-7.0); Hematocrit 43.2 % (36.0-46.0); Hemoglobin 14.2 g/dL (12.2-16.2); Lymphocytes # (auto) 1.9 10 ^3/uL (0.4-5.4); Lymphocytes % (auto) 25.9 % (10.0-50.0); Mean Corpuscular Hemoglobin 28.9 pg (28.0-32.0); Mean Corpuscular Volume 87.7 fL (80.0-100.0); Monocytes # (auto) 0.3 10 ^3/uL (0-1.3); Monocytes % (auto) 4.2 % (0.0-12.0); Neutrophils # (auto) 5.1 10 ^3/uL (1.6-8.6); Neutrophils % (auto) 67.3 % (37.0-80.0); Nucleated Red Blood Cells % 0.1 %; Red Blood Cells 4.92 10^6/uL (4.0-5.20); Red Cell Distribution Width 13.8 % (11.8-14.3); White Blood Cell 7.5 10^3/uL (4.4-10.8)
[2022-06-30 12:10] LABS: Urine Bacteria FEW /hpf (None Seen); Urine Blood 1+ /uL (Negative); Urine Mucus FEW (None Seen); Urine Specific Gravity 1.023 (1.001-1.035); Urine WBC 1 /hpf (0 - 5)
[2022-06-30 12:40] LABS: Albumin 3.8 g/dL (3.4-5.0); Calcium 9.3 mg/dL (8.5-10.1); Potassium 3.9 mmol/L (3.5-5.1)
[2022-06-30 12:48] LABS: BUN/Creatinine Ratio 20.3 (10.0-20.0); Bilirubin, Total 0.4 mg/dL (0.2-1.0); Total Protein 8.2 g/dL (6.4-8.2)
== END | disposition home or self-care (01) ==
LOC: LAB 11:22
PROVIDERS: ATTEND Student in an Organized Health Care Education/Training Program
DX: I10 Essential (primary) hypertension (principal); E55.9 Vitamin D deficiency, unspecified; K21.9 Gastro-esophageal reflux disease without esophagitis; R73.9 Hyperglycemia, unspecified; N95.1 Menopausal and female climacteric states
CPT/HCPCS: 36415; 80053; 80061; 81001; 82306; 82670; 83001; 83036; 84443; 85025

== ENCOUNTER → 2022-10-19 | Outpatient (CLI) | payer MEDICAID ==
[2022-10-19 12:21] LABS: Basophils # (auto) 0.1 10 ^3/uL (0-0.2); Basophils % (auto) 0.9 % (0.0-2.0); Eosinophils # (auto) 0.1 10 ^3/uL (0-0.8); Eosinophils % (auto) 1.3 % (0.0-7.0); Hematocrit 42.2 % (36.0-46.0); Hemoglobin 13.7 g/dL (12.2-16.2); Lymphocytes # (auto) 1.6 10 ^3/uL (0.4-5.4); Lymphocytes % (auto) 25.4 % (10.0-50.0); Mean Corpuscular Hemoglobin 28.2 pg (28.0-32.0); Mean Corpuscular Hgb Conc. 32.4 g/dL (32.0-36.0); Monocytes # (auto) 0.4 10 ^3/uL (0-1.3); Monocytes % (auto) 5.6 % (0.0-12.0); Neutrophils # (auto) 4.2 10 ^3/uL (1.6-8.6); Neutrophils % (auto) 66.8 % (37.0-80.0); Red Blood Cells 4.85 10^6/uL (4.0-5.20); Red Cell Distribution Width 13.8 % (11.8-14.3); White Blood Cell 6.3 10^3/uL (4.4-10.8)
[2022-10-19 12:43] LABS: Urine Bacteria FEW /hpf (None Seen); Urine Blood TRACE /uL (Negative); Urine Mucus FEW (None Seen); Urine Specific Gravity 1.022 (1.001-1.035); Urine WBC 1 /hpf (0 - 5)
[2022-10-19 12:53] LABS: Potassium 4.4 mmol/L (3.5-5.1)
[2022-10-19 12:59] LABS: BUN/Creatinine Ratio 16.7 (10.0-20.0); Calcium 8.7 mg/dL (8.5-10.1)
== END | disposition home or self-care (01) ==
LOC: LAB 11:45
PROVIDERS: ATTEND Student in an Organized Health Care Education/Training Program
DX: I10 Essential (primary) hypertension (principal); R73.9 Hyperglycemia, unspecified; E78.5 Hyperlipidemia, unspecified
CPT/HCPCS: 36415; 80048; 80061; 81001; 83036; 85025

== ENCOUNTER → 2023-09-18 | Outpatient (CLI) | payer MEDICAID ==
[2023-09-18 11:06] LABS: Urine Bacteria None Seen /hpf (None Seen)
[2023-09-18 11:46] LABS: Urine Blood 1+ /uL (Negative); Urine Clarity Clear (Clear); Urine Color Light-Yellow (Yellow); Urine Mucus FEW (None Seen); Urine Protein, UAD Negative (Negative); Urine Specific Gravity 1.024 (1.001-1.035); Urine Urobilinogen Normal (Negative); Urine WBC <1 /hpf (0 - 5); Urine pH 6.5 (5.0-9.0)
== END | disposition home or self-care (01) ==
LOC: LAB 11:01
DX: R31.29 Other microscopic hematuria (principal); K21.9 Gastro-esophageal reflux disease without esophagitis
CPT/HCPCS: 81001

== ENCOUNTER → 2023-11-14 | Outpatient (CLI) | payer MEDICAID ==
[2023-11-14 07:50] LABS: Basophils # (auto) 0.1 10 ^3/uL (0-0.2); Basophils % (auto) 1.1 % (0.0-2.0); Eosinophils # (auto) 0.1 10 ^3/uL (0-0.8); Eosinophils % (auto) 1.9 % (0.0-7.0); Hematocrit 40.7 % (36.0-46.0); Hemoglobin 13.6 g/dL (12.2-16.2); Lymphocytes % (auto) 29.4 % (10.0-50.0); Mean Corpuscular Hemoglobin 29.6 pg (28.0-32.0); Mean Corpuscular Hgb Conc. 33.5 g/dL (32.0-36.0); Mean Corpuscular Volume 88.4 fL (80.0-100.0); Monocytes # (auto) 0.3 10 ^3/uL (0-1.3); Monocytes % (auto) 4.9 % (0.0-12.0); Neutrophils # (auto) 4.3 10 ^3/uL (1.6-8.6); Neutrophils % (auto) 62.7 % (37.0-80.0); Nucleated Red Blood Cells % 0.1 %; Red Cell Distribution Width 13.5 % (11.8-14.3); White Blood Cell 6.9 10^3/uL (4.4-10.8)
[2023-11-14 08:21] LABS: Urine Bacteria FEW /hpf (None Seen); Urine Blood 1+ /uL (Negative); Urine Clarity Clear (Clear); Urine Color Yellow (Yellow); Urine Mucus FEW (None Seen); Urine Protein, UAD TRACE (Negative); Urine Specific Gravity 1.028 (1.001-1.035); Urine Urobilinogen Normal (Negative); Urine WBC 1 /hpf (0 - 5); Urine pH 5.5 (5.0-9.0)
[2023-11-14 08:26] LABS: Alanine Aminotransferase 13 U/L (7-40); Albumin 4.4 g/dL (3.2-4.8); Alkaline Phosphatase 83 U/L (46-116); Anion Gap 7 (5-15); Aspartate Aminotransferase < 8 U/L (13-40); BUN/Creatinine Ratio 22.2 (10.0-20.0); Bilirubin, Total 0.4 mg/dL (0.2-1.0); Blood Urea Nitrogen 16 mg/dL (9-23); Calcium 9.8 mg/dL (8.7-10.4); Carbon Dioxide 27 mmol/L (20-30); Chloride 107 mmol/L (98-107); Cholesterol 238 mg/dL (< 200); Glucose 140 mg/dL (74-106); HDL Cholesterol 46 mg/dL (40-59); LDL Cholesterol 169 mg/dL (< 100); Potassium 4.8 mmol/L (3.5-5.1); Sodium 141 mmol/L (136-145); Total Protein 7.2 g/dL (5.7-8.2); Triglycerides 175 mg/dL (< 150)
== END | disposition home or self-care (01) ==
LOC: LAB 07:28
PROVIDERS: ATTEND Student in an Organized Health Care Education/Training Program
DX: I10 Essential (primary) hypertension (principal); R73.9 Hyperglycemia, unspecified
CPT/HCPCS: 36415; 80053; 80061; 81001; 83036; 84443; 85025